=== PATIENT | female | born 1955 | race Caucasian/White ===

== ENCOUNTER 2017-06-25 20:00 | Emergency (ER) | payer BC ==
[~2017-06-25] VITALS: Ht 160 cm; Wt 68.0 kg
== END 2017-06-26 00:38 | disposition home or self-care (01) ==
LOC: ER 20:00
DX: S93.491A Sprain of other ligament of right ankle, initial encounter (principal); X50.9XXA Other and unspecified overexertion or strenuous movements or postures, initial encounter; Y93.K1 Activity, walking an animal; Y92.89 Other specified places as the place of occurrence of the external cause; Y99.8 Other external cause status